=== PATIENT | male | born 1955 | race Caucasian/White ===

== ENCOUNTER 2021-07-02 17:58 | Emergency (ER) | payer OTHER, SELFPAY ==
[2021-07-02 17:58] VITALS: BP 123/77; PULSE 82; RESP 16; TEMP 35.8; O2SAT 97; BMI 25.6
--- NOTE | 2021-07-02 18:26 | ED.VIS.LOWEX ---
HPI History of Present Illness Chief Complaint: Lower Extremity Injury Detail of Chief Complaint: Redness and swelling to right foot Informant: patient Narrative Narrative: Patient presents with right foot redness and swelling that started yesterday. He denies any trauma. Patient states that he has history of eczema and dry cracked skin and sometimes he will get infections. Years ago he had bursitis related to cracks in the skin. Patient also incidentally COVID-positive day for of symptoms. He denies chills or sweats or fevers currently. Patient otherwise has only history of depression. [facility] Medical History (Updated 07/02/21 @ 18:[address] Rosalinda Garcia, DO) Depression Home Medications cephalexin 500 mg PO Q6 #40 capsule 07/02/21 [Rx Last Taken Unknown] sulfamethoxazole-trimethoprim 1 tab PO BID #20 tablet 07/02/21 [Rx Last Taken Unknown] Allergy/AdvReac Type Severity Reaction Status Date / Time No Known Allergies Allergy Verified 07/02/21 18:00 Social History Smoking Status: Former smoker ROS ROS ED Constitutional Constitutional ED: Reports systems reviewed and no addt'l complaints, except as documented; Denies body ache(s), change in weight or chills Eyes Eyes: Denies acute decrease in peripheral vision, change in vision, double vision or loss of vision ENT ENT ED: Reports none; Denies ear pain, lip swelling, loss taste/smell, neck pain, otalgia or sore throat Cardiovascular Cardiovascular: Reports none; Denies abdominal pain, chest pain with activity, leg edema, lightheadedness, palpitations, rapid heart rate or syncope Respiratory/Chest Respiratory/Chest: Reports none; Denies change in mental status, dry cough, dyspnea, hemoptysis, shortness of breath at rest or shortness of breath with exertion Gastrointestinal Gastrointestinal: Reports none; Denies abdominal pain, change in stool character, diarrhea, hematemesis, hematochezia, melena, rectal bleeding or vomiting Genitourinary Genitourinary ED: Reports none; Denies abdominal discomfort, anuria, dysuria, genital pain or polyuria Musculoskeletal Musculoskeletal: Reports none; Denies arthralgias, back pain, difficulty walking, extremity pain, muscle weakness or myalgias Integumentary Reports none, rash and other Details: Redness and swelling to top of right foot ; Denies abscess Neurologic Neurologic: Reports none; Denies abnormal gait, confusion, focal weakness, frequent falls, headache(s), loss of vision, numbness, paresthesias, radicular pain, vertigo or weakness Psychiatric Psychiatric: Reports systems reviewed and no addt'l complaints, except as documented and none; Denies behavioral changes, confusion, difficulty concentrating, hallucinations, suicidal ideation, tactile hallucinations or visual hallucinations Endocrine Endocrinology: Denies none, cold intolerance, excessive sweating, fatigue or heat intolerance Hematologic/Lymphatic Hematologic/Lymphatic: Reports none; Denies anemia, easy bleeding or easy bruising Allergic/Immunologic Allergic/Immunologic ED: Denies as per HPI, none, lip swelling, mouth swelling, throat swelling, tongue swelling or hives EXAM Physical Exam Const Vital Signs: 07/02/21 17:58 Temperature 96.5 F L Temperature Source Temporal Pulse Rate 82 Respiratory Rate 16 Blood Pressure 123/77 H Blood Pressure Mean 92 Pulse Ox 97 Oxygen Delivery Method Room Air Positive well nourished and well developed General Appearance ED: well developed and NAD HEENT Reports TM's clear and moist mucous membranes normocephalic and atraumatic; Negative for trauma or tenderness Tympanic Membrane ED: Yes TM's clear Eyes PERRL and EOMs intact bilaterally General Eye ED: Negative for pale conjunctiva or scleral icterus Neck no lymphadenopathy, supple and no JVD General: Negative for tenderness Chest Wall inspection of chest normal and palpation of chest normal Chest: Negative for tenderness Resp normal respiratory effort and clear to auscultation bilaterally Effort and Inspection: Negative for respiratory distress or pain with movement Auscultation: Negative for rhonchi, wheezes or diminished lung sounds Cardio regular rate, regular rhythm, S1 normal heart sound, S2 normal heart sound and no murmurs Peripheral Pulses: pulses 2+ throughout GI normal to inspection, nondistended, normoactive bowel sounds, soft to palpation, non-tender, non-distended and no masses Back/Spine no CVA tenderness and no thoracic nor lumbar tenderness Extremity Extremity Narrative: Evaluation of the right foot does reveal some faint erythema to the top of the right foot. There is a more central area of erythema measuring approximately 2.5 cm in diameter over the base of the first metatarsal dorsally. Area slightly tender to palpation. There is no fluctuance. No discrete abscess. Patient also noted to have dry cracked skin on both feet. General Extremety ED: Negative for edema General Extremity: Negative for edema Neuro oriented x3, CN's II-XII intact bilaterally, no sensory deficits noted and gait normal Sensorium / Orientation: awake, alert, oriented to person, oriented to place and oriented to time Motor Exam: strength 5/5 throughout and strength abnormal Psych mental status grossly normal Skin no rashes or lesions noted and no wounds MDM MDM MDM Narrative Medical decision making narrative: I suspect patient likely has early cellulitis of the right foot. I started him on Bactrim and Keflex. I outlined the area of erythema with permanent marker. At this point he is not on toxic appearing and do not feel he warrants admission. Patient advised to return if increasing pain, redness, swelling, fevers, or condition should worsen anyway. Discharge Plan Triage Chief Complaint: Lower Extremity Injury ED Provider: Rosalinda Garcia Dx/Rx/DC Orders Clinical Impression: Cellulitis of foot, right Instructions: ED Cellulitis Prescriptions: New cephalexin [cephalexin] 500 MG capsule 500 mg PO Q6 Qty: 40 RF: 0 sulfamethoxazole-trimethoprim [sulfamethoxazole-trimethoprim] 1 TABLET tablet 1 tab PO BID Qty: 20 RF: 0 Activity Restrictions/Additional Instructions: See your family doctor in 3 to 5 days for wound check. Disposition Disposition: Home, Self Care
[2021-07-02] MEDS: Smz/Tmp Ds Tablet 1 TABLET PO (18:58)
[2021-07-02] MEDS: Cephalexin 250 MG Capsule 500 MG PO (18:58)
== END 2021-07-02 19:00 | disposition home or self-care (01) ==
LOC: ED 18:48
PROVIDERS: Emergency Provider Emergency Medicine; PCP Family Medicine; Visit Provider Emergency Medicine
DX: L03.115 Cellulitis of right lower limb (principal); U07.1 COVID-19; Z87.891 Personal history of nicotine dependence
CPT/HCPCS: 99283

== ENCOUNTER 2023-12-16 19:08 | Emergency (ER) | payer OTHER, SELFPAY ==
[2023-12-16 19:09] VITALS: BP 125/96; PULSE 73; RESP 18; TEMP 36.4; O2SAT 97; BMI 26.5
--- NOTE | 2023-12-16 19:31 | EKG12_ITS ---
Test Reason : DYSRHYTHMIA Blood Pressure : / mmHG Vent. Rate : 067 BPM Atrial Rate : 067 BPM P-R Int : 180 ms QRS Dur : 074 ms QT Int : 402 ms P-R-T Axes : 064 049 059 degrees QTc Int : 424 ms Normal sinus rhythm Normal ECG Confirmed by Daren Hoang ([id number]), video news editor ANU MCGRAW ([id number]) on 12/17/2023 11:13:15 AM Referred By: Confirmed By:Daren Hoang
[2023-12-16 19:32] VITALS: BP 129/90; BP 132/91; PULSE 65; PULSE 67; PULSE 71
--- NOTE | 2023-12-16 19:32 | EDS_ITS ---
HPI History of Present Illness Chief Complaint: Dizziness Detail of Chief Complaint: Lightheadedness and chest tightness Informant: patient Narrative Narrative: Patient presents emergency department with complaint of lightheadedness that he first noticed this morning around 7 AM while at work. Patient subsequently developed some intermittent chest tightness. He has developed some numbness and tingling in his fingertips at times and into his legs. He denies any falls or head injuries. He denies recent illness. Has had no fever or cough. He has no medical history. He has no heart history. No family history of heart disease. Patient is getting ready to retire in 3 days. He currently has no chest tightness. He denies vertiginous symptoms. [facility] Medical History (Updated 12/16/23 @ 21:[address] Rosalinda Garcia, DO) Depression Home Medications ?Medication ?Instructions ?Recorded ?Last Taken ?Type lorazepam 1 mg tablet (Ativan) 1 mg PO TID PRN anxiety #10 tabs 12/16/23 Unknown Rx multivitamin (Daily Multi-Vitamin 1 tab PO DAILY 12/16/23 Unknown History tablet) Allergy/AdvReac Type Severity Reaction Status Date / Time No Known Allergies Allergy Verified 12/16/23 19:09 Social History Smoking Status: Former smoker ROS ROS ED Review of Systems ROS Unobtainable: other Constitutional Constitutional ED: Reports lethargy; Denies chills, fever(s), sweats or weight loss Eyes Eyes: Denies blurry vision, change in vision or diplopia ENT ENT ED: Denies rhinorrhea or sore throat Cardiovascular Cardiovascular: Reports chest pain; Denies orthopnea or racing heartbeat Respiratory/Chest Respiratory/Chest: Denies cough, dyspnea, dyspnea on exertion, orthopnea or sputum Gastrointestinal Gastrointestinal: Denies abdominal pain, diarrhea, nausea or vomiting Genitourinary Genitourinary ED: Denies dysuria, hematuria or urinary frequency Musculoskeletal Musculoskeletal: Denies arthralgias, back pain, myalgias or neck pain Integumentary Denies abscess, Abrasions or rash Neurologic Neurologic: Reports paresthesias and other Details: Lightheadedness ; Denies headache(s) or weakness Psychiatric Psychiatric: Denies anxiety, depression or suicidal thoughts Endocrine Endocrinology: Denies polydipsia, polyphagia or polyuria Hematologic/Lymphatic Hematologic/Lymphatic: Denies easy bleeding, easy bruising or lymphadenopathy Allergic/Immunologic Allergic/Immunologic ED: Denies mouth swelling, tongue swelling or urticaria EXAM Physical Exam Const Vital Signs: 12/16/23 19:09 12/16/23 19:32 Temperature 97.5 F L Temperature Source Temporal Pulse Rate 73 Pulse Rate [Lying] 67 Pulse Rate [Sitting (for 1 minute prior to obtaining)] 65 Pulse Rate [Standing (for 1 minute prior to obtaining)] 71 Respiratory Rate 18 Blood Pressure 125/96 H Blood Pressure [Lying] 129/90 H Blood Pressure [Sitting (for 1 minute prior to obtaining)] 129/90 H Blood Pressure [Standing (for 1 minute prior to obtaining)] 132/91 H Blood Pressure Mean 105 Blood Pressure Mean [Lying] 103 Blood Pressure Mean [Sitting (for 1 minute prior to obtaining)] 103 Blood Pressure Mean [Standing (for 1 minute prior to obtaining)] 104 Pulse Ox 97 Oxygen Delivery Method Room Air Positive well nourished and well developed General Appearance ED: well developed and NAD HEENT Reports TM's clear and moist mucous membranes normocephalic and atraumatic; Negative for trauma or tenderness Tympanic Membrane ED: Yes TM's clear Eyes PERRL and EOMs intact bilaterally General Eye ED: Negative for pale conjunctiva or scleral icterus Neck no lymphadenopathy, supple and no JVD General: Negative for tenderness Chest Wall inspection of chest normal and palpation of chest normal Chest: Negative for tenderness Resp normal respiratory effort and clear to auscultation bilaterally Effort and Inspection: Negative for respiratory distress or pain with movement Auscultation: Negative for rhonchi, wheezes or diminished lung sounds Cardio regular rate, regular rhythm, S1 normal heart sound, S2 normal heart sound and no murmurs Peripheral Pulses: pulses 2+ throughout GI normal to inspection, nondistended, normoactive bowel sounds, soft to palpation, non-tender, non-distended and no masses Back/Spine no CVA tenderness and no thoracic nor lumbar tenderness Extremity normal to inspection General Extremety ED: Negative for edema General Extremity: Negative for edema Neuro oriented x3, CN's II-XII intact bilaterally, no sensory deficits noted and gait normal Sensorium / Orientation: awake, alert, oriented to person, oriented to place and oriented to time Motor Exam: strength 5/5 throughout and strength abnormal Psych mental status grossly normal Skin no rashes or lesions noted and no wounds MDM MDM MDM Narrative Medical decision making narrative: Patient presents with vague symptoms of lightheadedness and some mild chest tightness and tingling in his fingers and feet. Under increased stress recently per and he is retiring in 3 days. He has no heart history or other medical problems. He does state that he has been diagnosed with anxiety in the past. IV line established. EKG obtained arrival showed a sinus rhythm with rate of 67 bpm with no acute ST segment changes. CBC with differential was normal. Chemistries were normal. Troponin was normal at 5. Orthostatic vital signs were negative. At this point clinically he looks well. He has been having intermittent chest tightness throughout the day I do not think he needs a delta troponin. I do not feel he has a acute coronary syndrome. His heart score is a 2. Will start him on Ativan as needed for anxiety. Advised to follow-up with his primary care physician within next 5 to 7 days. Lab Data Attestation: I reviewed the patient's lab results. Labs: Laboratory Results - last 24 hr 12/16/23 19:25 WBC 5.3 RBC 4.88 Hgb 14.4 Hct 43.6 MCV 89.3 MCH 29.5 MCHC 33.0 RDW Std Deviation 41.1 RDW Coeff of [place] 12.5 Plt Count 201 MPV 9.7 Immature Gran % (Auto) 0.200 Neut % (Auto) 49.2 Lymph % (Auto) 36.2 [place] % (Auto) 10.7 H Eos % (Auto) 2.7 Baso % (Auto) 1.0 Absolute Neuts (auto) 2.6 Absolute Lymphs (auto) 1.90 Nucleated RBC % 0 Sodium 137 Potassium 3.9 Chloride 107 Carbon Dioxide 27.0 Anion Gap 3 L BUN 19 H Creatinine 1.02 Estim Creat Clear Calc 78.35 Est GFR (MDRD) Af Amer 93 Est GFR (MDRD) Non-Af 77 BUN/Creatinine Ratio 18.6 Glucose 98 Calcium 9.5 Troponin I High Sens 5 EKG Initial EKG: Attestation: I personally reviewed and interpreted this EKG as follows: Comments: Sinus rhythm with ventricular rate 67 bpm with no acute ST segment changes Discharge Plan Triage Chief Complaint: Dizziness ED Provider: Rosalinda Garcia Dx/Rx/DC Orders Clinical Impression: Dizziness, Anxiety, Chest pain Instructions: ED Anxiety Reaction, ED Chest Pain, Uncertain Cause, ED Dizziness, Uncertain Cause Prescriptions: New lorazepam [Ativan] 1 mg tablet 1 mg PO TID PRN (Reason: anxiety) Qty: 10 0RF No Action multivitamin [Daily Multi-Vitamin] Tablet 1 tab PO DAILY Primary Care Provider: Saman Cherry Referrals: Saman Cherry MD [Primary Care Provider] - 5-7 Days Print Language: Azeri Disposition Disposition: Home, Self Care
[2023-12-16 19:58] LABS: Absolute Neutrophil Count 2.6 X10^3/uL (2.0-7.7); Basophil# 0.05 X10^3/uL; Eosinophil# 0.14 X10^3/uL; Eosinophils% 2.7 % (0-5); Hematocrit 43.6 % (40-54); Hemoglobin 14.4 g/dL (13.0-16.5); Lymphocyte % 36.2 % (19-41); Mean Corpuscular Hgb 29.5 pg (27.0-32.0); Mean Corpuscular Volume 89.3 fL (80-94); Mean Platelet Vol. 9.7 fl (6.2-12.0); Monocyte# 0.56 X10^3/uL; Monocyte% 10.7 % (0-10); NRBC Flagged by Analyzer 0 % (0-5); Neutrophil # 2.59 X10^3/uL (2.7-7.7); Neutrophil % 49.2 % (47-70); Platelet Count 201 K/mm3 (150-450); RBC Distribution Width CV 12.5 % (11.6-14.6); RBC Distribution Width SD 41.1 fl (35.1-43.9); Red Blood Count 4.88 M/mm3 (4.6-6.2); White Blood Count 5.3 K/mm3 (4.4-11.0)
[2023-12-16] MEDS: 0.9% Normal Saline (1000mL) 1,000 ML 1000 ML IV (20:07)
[2023-12-16 20:23] LABS: Anion Gap 3 (5-15); BUN 19 mg/dL (7-18); BUN/Creat Ratio 18.6 RATIO (10-20); Calcium,Total 9.5 mg/dL (8.5-10.1); Chloride 107 mmol/L (98-107); Creatinine, Serum 1.02 mg/dL (0.70-1.30); EST Glomerular Filtration Rate 77 mL/min (>60); Est Glom Filt Rate - Afr Amer 93 mL/min (>60); Estimated Creatinine Clearance 78.35 ml/min; Glucose 98 mg/dL (74-106); Potassium 3.9 mmol/L (3.5-5.1); Sodium Level 137 mmol/L (136-145); Troponin-I HS 5 pg/mL (3.0-78.0)
[2023-12-16 21:17] VITALS: BP 141/89; PULSE 63; RESP 16; TEMP 36.6; O2SAT 99
== END 2023-12-16 21:18 | disposition home or self-care (01) ==
PROVIDERS: Emergency Provider Emergency Medicine; PCP Family Medicine; Visit Provider Emergency Medicine
DX: R42 Dizziness and giddiness (principal); F41.9 Anxiety disorder, unspecified; R07.9 Chest pain, unspecified; Z87.891 Personal history of nicotine dependence
CPT/HCPCS: 80048; 84484; 85025; 93005; 99284; J7030; A4216